=== PATIENT | female | born 1985 | race Caucasian/White ===

== ENCOUNTER 2020-02-25 13:24 | Emergency (ER) | payer BC, OTHER ==
[~2020-02-25 13:24] MED LIST: COMBIVENT RESPIM4 GM INH; DELSYM30 MG/5 ML PO; ULTRAM50 MG PO; XOFLUZA40 MG PO
[2020-02-25 14:31] LABS: HEMOGLOBIN 13.2 gm/dl (12.3-15.3); RED BLOOD COUNT 4.68 M/UL (4.00-5.10); WHITE BLOOD COUNT 7.9 K/UL (4.5-11.0)
[2020-02-25 15:01] LABS: BUN/CREATININE RATIO 14 (0-10)
== END 2020-02-25 18:45 | disposition home or self-care (01) ==
LOC: ER1 13:24
PROVIDERS: Emergency Medicine
DX: R07.9 Chest pain, unspecified (principal); R10.9 Unspecified abdominal pain; M54.9 Dorsalgia, unspecified; I10 Essential (primary) hypertension
CPT/HCPCS: 71045; 80053; 81001; 82550; 82553; 83690; 83735; 83874; 84484; 84703; 85025; 85379; 93005; 96374; 96375; 99285; J1885; J2405; Q9967

== ENCOUNTER → 2020-03-01 | Outpatient (CLI) | payer BC, OTHER | LOC: HEART 5 14:12 | DX: R00.2 Palpitations (principal) ==

== ENCOUNTER → 2020-04-17 | Outpatient (CLI) | payer BC, OTHER | LOC: ECHO 04-03 09:00 | DX: R00.2 Palpitations (principal); I34.0 Nonrheumatic mitral (valve) insufficiency; I07.1 Rheumatic tricuspid insufficiency | CPT/HCPCS: ECHO; 93306 ==